=== PATIENT | female | born 2000 | race Caucasian/White ===

== ENCOUNTER 2020-09-26 04:37 | Emergency (ER) | payer OTHER ==
[~2020-09-26] VITALS: Ht 170.2 cm; Wt 65.9 kg
[2020-09-26 04:43] VITALS: BP 159/82; PULSE 70; TEMP 98.1
[2020-09-26] MEDS ORDERED: OMNICEF 300MG300 MG PO (05:01)
== END 2020-09-26 05:06 | disposition home or self-care (01) ==
LOC: COL.ER 04:37
DX: H66.92 Otitis media, unspecified, left ear (principal)

== ENCOUNTER 2020-09-28 03:07 | Emergency (ER) | payer OTHER ==
[~2020-09-28] VITALS: Ht 170.2 cm; Wt 65.9 kg
[~2020-09-28 03:07] MED LIST: OMNICEF 300MG300 MG PO
[2020-09-28] MEDS ORDERED: NORCO 325 MG-51 TAB PO (04:57)
[2020-09-28 05:08] VITALS: BP 129/82; PULSE 88; TEMP 99.1
== END 2020-09-28 05:08 | disposition home or self-care (01) ==
LOC: COL.ER 03:07
DX: H60.92 Unspecified otitis externa, left ear (principal)